=== PATIENT | male | born 1980 | race Two or more races ===

== ENCOUNTER 2019-03-17 04:25 | Inpatient (IN) | payer OTHER ==
[~2019-03-17] VITALS: Ht 175.3 cm; Wt 92.5 kg
--- NOTE | 2019-03-17 04:30 | NUR ---
PT. PRESENTS TO ER COMBATIVE, YELLING, SCREAMING, STATING HE HATES HIS MOTHER, [facility] STATES HE WAS FOUND NEAR A [facility], [place] [employer] WAS NOTIFIED, PT. HAS HX OF SCHIZOPHRENIC AND BIPOLAR, HAS BEEN NON-COMPLIANT WITH MEDICATIONS, PT./ PLACED IN BED 5, INSTRUCTED PT. TO VERBALIZED FEELINS, DE-ESCALTING TECHNIQUES IMPLIED, REDUCED STIMULI, PT. STILL REFUSING TO COOPERATIVE, HARD RESTRAINTS APPLIED PER DR. CARLSON, SAFETY PRECAUTIOS IN PLACE, IN VIEW OF STAFF, WILL MONITOR.
--- NOTE | 2019-03-17 04:35 | NUR ---
PT VERBALIZED NKA TO EMT EN ROUTE
[2019-03-17 05:33] LABS: CALCIUM 8.6 mg/dL (8.5-10.1); CHLORIDE SERUM 108 mmol/L (98-107); GFR1 > 60 mL/min; GLUCOSE SERUM 86 mg/dL (74-106); POTASSIUM SERUM 3.5 mmol/L (3.5-5.1); SODIUM SERUM 144 mmol/L (136-145)
[2019-03-17 05:41] LABS: BASOPHIL % 0.2 % (0-2); PLATELET COUNT 195 x10^3mcL (130-400); RED CELL DISTRIBUTION WIDTH 12.8 % (11.5-14.5)
--- NOTE | 2019-03-17 06:12 | NUR ---
PT. ATTEMPED TO GIVE URINE SAMPLE, STATES "I CANT GO." URINAL AT BEDSIDE
--- NOTE | 2019-03-17 06:30 | NUR ---
PT. YELLING, CALLING STAFF NAMES, REFUSING TO BE COOPERATIVE, REFUSING TO GIVE URINE SAMPLE, MADE AWARE,
--- NOTE | 2019-03-17 06:47 | NUR ---
I CALLED [employer] FOR ASSIT TO THIS CASE, PT IS VERY VEBALLY ABUSIVE SPEAKING OUT LOUD YELLING, BITING HIS RESTRAINTS TO TAMY WRISTS, PT IS SPITTING AT SEVERAL STAFF MEMBERS, PT IS IN ROOM 5 WITH SIDERAILS UP IN 4 POINT RESTRAINTS.
--- NOTE | 2019-03-17 06:51 | NUR ---
PT. SPITTING AT STAFF, YELLING, CUSSING, SAYING "FUCK KARL." "STUPID ASS BITCH , YOU IN THE PINK." SECURITY AT BEDSIDE,
--- NOTE | 2019-03-17 07:11 | NUR ---
REPORT GIVEN TO SINTIA
--- NOTE | 2019-03-17 07:13 | NUR ---
RECEIVED REPORT FROM KIN SAN FOR CONTINUED CARE OF PATIENT.
--- NOTE | 2019-03-17 07:56 | NUR ---
INTRODUCED MYSELF TO PATIENT. RELEASED RESTRAINTS TO ALLOW PATIENT TO USE URINAL. WILL CONTINUE TO MONITOR.
--- NOTE | 2019-03-17 08:03 | NUR ---
ORDERED PATIENT MEALS FOR TODAY. PATIENT IS BEING COOPERATIVE AT THE MOMENT, THEREFORE, I RELEASED LEG RESTRAINTS. WILL CONTINUE TO MONITOR.
--- NOTE | 2019-03-17 08:05 | NUR ---
REMOVED RESTRAINTS FROM PATIENT. PATIENT IS PRESENTING IN A CALM MANNER. PT STS HE HASN'T TAKEN HIS SEROQUEL IN OVER A WEEK AND HAS APOLOGIZED FOR HIS BEHAVIOR EARLIER. PT WAS PROVIDED BEVERAGES AND A SANDWICH UNTIL DIETARY CAN PROVIDE A BREAKFAST TRAY. WILL CONTINUE TO MONITOR.
[2019-03-17 08:24] LABS: AMPHETAMINE QUAL UR NONE DETECTED (See below)
--- NOTE | 2019-03-17 08:24 | NUR ---
[facility] has received packet via fax. Will begin looking for placement for this pt. Will contact with any updates.
--- NOTE | 2019-03-17 09:01 | NUR ---
BREAKFAST TRAY PROVIDED, PT HAS REMAINED COOPERATIVE. PT KEEPS APOLOGIZING FOR HIS BEHAVIOR STATING "I HAVE JUST BEEN GOING THROUGH A LOT OF SHIT". WILL CONTINUE TO MONITOR.
--- NOTE | 2019-03-17 09:14 | NUR ---
Contacted the following facilities regarding placement: [facility]: No beds at this time, packet faxed for waitlist. [facility]:No beds, possible D/Cs today, packet faxed for potential openings. [facility]: Pending D/C Planning will [facility] No openings at this time. Will continue to contact facilities. Will contact with any updates.
--- NOTE | 2019-03-17 10:35 | NUR ---
[facility] s/w Camille no beds. Packet faxed for wait list
--- NOTE | 2019-03-17 10:37 | NUR ---
PT GIVEN TOILETRIES FOR SELF HYGIENE. PT OOB WITH NO PROBLEM. PT WALKING AROUND ROOM "TO HELP WITH HIS LEG CIRCULATION" PT CALM AND COOPERATIVE AT THIS TIME. NO DISTRESS. PRIMARY RN SINTIA OVERSEEING PTS CARE.
--- NOTE | 2019-03-17 11:10 | NUR ---
PATIENT HAS BECOME AGITATED AGAIN. PT PACING ROOM, REQUESTED MEDICATION ORDER. DR BORDEN ORDERED, WILL WAIT FOR PHARMACY TO DELIVER. WILL CONTINUE TO MONITOR.
--- NOTE | 2019-03-17 11:35 | NUR ---
REQUESTED PHARMACY BRING MEDS FOR PATIENT STAT. PT IRRITATED AND PACING ROOM WHILE RAPPING. PT DENIES S/I OR H/I. WILL CONTINUE TO MONITOR.
--- NOTE | 2019-03-17 11:49 | NUR ---
PATIENT MEDICATED PER MD ORDERS
--- NOTE | 2019-03-17 12:08 | NUR ---
PATIENT BACK ON RESTRAINTS AFTER SHOWING AGRESSIVE BEHAVIOR TOWARDS STAFF AND OTHER PATIENTS. PATIENT SCREAMING AND COMBATIVE. WILL CONTINUE TO MONITOR.
--- NOTE | 2019-03-17 12:24 | NUR ---
PATIENT MEDICATED PER MD ORDERS, PT COMBATIVE BUT RESTRAINED. PT VERY AGITATED. MD AWARE.
--- NOTE | 2019-03-17 12:33 | NUR ---
I CALLED [employer] OFFICERS TO HELP WITH THIS CASE PT IS MANIC AT THIS TIME PER DR BORDEN IV MEDS KAETAMINE CAN BE GIVEN HOWEVER WE NEED AN IV.
--- NOTE | 2019-03-17 13:16 | NUR ---
PT SLEEPING AROUSABLE WHEN CALLING, IV SALINE LOCK TO L HAND ESTABLISHED PER DR BORDEN ORDERS FLUSHED WITH NO PROBLEM. PT REMAINS IN CLOSE VIEW OF NURSE STATION
--- NOTE | 2019-03-17 14:36 | NUR ---
PT ASLEEP, EASILY AROUSABLE, RESP E/U, IN DIRECT VIEW OF NURSING STATION, IN NO ACUTE DISTRESS.
--- NOTE | 2019-03-17 15:26 | NUR ---
PATIENT LYING IN A POSITION OF COMFORT, BREATHING E/U, NAD NOTED. WILL CONTINUE TO MONITOR.
--- NOTE | 2019-03-17 16:30 | NUR ---
PATIENT SLEEPING IN A POSITION OF COMFORT, VSS, BREATHING E/U. WILL CONTINUE TO MONITOR.
--- NOTE | 2019-03-17 17:30 | NUR ---
PATIENT SLEEPING ON GURNEY- BREATHING E/U, NO ACUTE SS OF DISTRESS NOTED. WILL CONTINUE TO MONITOR.
--- NOTE | 2019-03-17 18:27 | NUR ---
PATIENT'S BROTHER CALLED INQUIRING OF STATUS ON PT. I WOULD NOT RELEASE ANY INFORMATION. FAMILY UNDERSTANDING OF PRIVACY RIGHTS.
--- NOTE | 2019-03-17 19:10 | NUR ---
MOTHER CALLED ME REQUESTING INFO IN REGARDS TO THIS PT. MOTHER HAS BEEN LOOKING FOR THIS PT FOR 4-5 DAYS, SHE INFORMS ME THAT HE HAS BEEN OUTRAGED WITH HIS BEHAVIOR.I INFORMED HER THAT [facility] IS [facility]AF[facility] AND WE ARE LIMITED TO INFO, SHE CAN COME TO SEE HIM IF SHE LIKE.
--- NOTE | 2019-03-17 19:15 | NUR ---
PROVIDED REPORT TO LEN FOR CONTINUED CARE OF PATIENT.
--- NOTE | 2019-03-17 19:32 | NUR ---
UPON ENTERING ROOM TO MEDICATE PATIENT, IV WAS NOT PATENT. PLACED A NEW IV TO LEFT HAND, NO INFILTRATION NOTED AND NO PAIN AT THE SITE.
[2019-03-17] MEDS ORDERED: SEROQUEL25 MG PO (19:33)
--- NOTE | 2019-03-17 19:52 | NUR ---
REPORT GIVEN TO CELIA SANDERSON IN ICU, WHO WILL BE ASSUMING FURTHER CARE OF THIS PATIENT. VERBAL OK YANIV MOBLEY TO ADMIT PATIENT TO ICU AT THIS TIME.
--- NOTE | 2019-03-17 20:10 | NUR ---
RECEIVED PT FROM ER VIA [facility] ACCOMPANIED BY 2 EMT'S AND 1 RN. PT TRANSFERED TO ICU BED 5 WITH NO COMPLICATIONS.
--- NOTE | 2019-03-17 20:30 | NUR ---
PT IS AGITATED AT THIS TIME. PT IS SCREEMING AT STAFF, " LET GO OF ME. I HAVE TO PEE". PT ATTEMPTING TO GET OUT OF BED. PT INSTURCTED TO REMAIN IN BED. MADE AWARE HE HAS A READ AT THIS TIME AND CAN PEE. PT REFUSING TO COOPERATE. PT MEDICATED WITH ATIVAN 2 MG IVP PER EMAR. WILL CONT TO MONITOR
[2019-03-17 20:32] VITALS: BP 126/68
--- NOTE | 2019-03-17 20:45 | NUR ---
RECEIVED PT AWAKE/ALERT. ORIENTED TO SELF. PT STS HE IS UNSURE WHERE HE IS AT AND IT IS 2012. PT REORIENTED AT THIS TIME. SPEECH IS GARBLED. PUPILS WITH BRISK REACTION TO LIGHT, 3 MM BILAT. EENT FREE OF DISCHARGE. ORAL MUCOSA PINK AND MOIST. BREATHING IS E/U ON RA. LUNGS SOUND CLEAR BILAT. SYMMETRICAL CHEST EXPANSION NOTED. S1/S2 HEART SOUNDS AUSCULTATED. CHEST WALL EQUAL AND SYMMETRICAL. HR 123, BP 126/68, MAP 88. PALPABLE PULSES X4 EXTREMITIES. SKIN IS WARM AND DRY. NO EDEMA NOTED. CAP REFILL < 3 SECS. LH AND RAC IV IN PLACE, SALINE LOCKED. COLOR CONSISTENT WITH ETHNICITY. NO JOINT SWELLING/DEFORMITY NOTED. LIMITED FULL ROM X4 EXTREMITIES. RECEIVED PT ON VELCRO 4 PT RESTRAINT FOR PT AND STAFF SAFETY, SKIN/PULSE WNL. ABD IS SOFT, ROUND, NONTENDER TO PALPATION. BOWEL SOUNDS ACTIVE X4 QUADRANTS. NO BM NOTED. RECEIVED ORDER FOR READ CATH INSERTION UPON ADMISSION. 16 FR READ CATH INSERTED VIA STERILE TECHNIQUE. 100 ML OF SIMON COLORED URINE NOTED. NO SCROTAL EDEMA OR PENILE DISCHARGE NOTED. ECCHYMOSIS NOTED TO BLE. SKIN IS INTACT. PT REMAINS AGITATED, ATTEMPTING TO GET OUT OF BED. DENIES ANY SI/HI/HALLUCINATIONS AT THIS TIME. BED IN LOW POSITION. PT ON CLEAR VIEW OF THE NURSES STATION. WILL CONT TO MONITOR
--- NOTE | 2019-03-17 22:10 | NUR ---
PT'S MOTHER AND GIRLFRIEND AT BEDSIDE. UPDATED ON PT'S CURRENT STATUS. ALL QUESTIONS/CONCERNS ADDRESSED. PT'S BELONGINGS SENT HOME WITH THE PT'S MOTHER.
--- NOTE | 2019-03-17 22:25 | NUR ---
PT'S O2 SATURATION DROPPED TO 80%. PT PLACED ON 3 L VIA NC. PT'S O2 SATURATION AFTERWARD INCREASED TO 98%. WILL CONT TO MONITOR.
[2019-03-17 23:00] VITALS: BP 118/77
--- NOTE | 2019-03-17 23:32 | NUR ---
Follow up calls were made to contracted [facility] facilities regarding bed placement, currently no beds available at this time. [facility], spoke with Evan. [facility], spoke with Caden. [facility], spoke with Verna. [facility], spoke with Fadi. [facility], spoke with Isabella. [facility], spoke with Estefany. [facility], spoke with Vita.
--- NOTE | 2019-03-18 00:24 | NUR ---
PT IS RESTLESS, ATTEMPING TO GET OUT OF BED AND PULLING ON READ CATH. PT INSTRUCTED TO NOT PULL ON CATHETER. BLOODY COLORED URINE WITH BLOOD CLOTS NOTED ON TUBING. READ TUBING IRRIGATED AT THIS TIME. WILL CONT TO MONITOR
--- NOTE | 2019-03-18 02:24 | NUR ---
PT IS RESTLESS AT THIS TIME. PT CONTINUES TO PULL ON READ CATH. BLOODY COLORED URINE NOTED. READ IRRIGATED WITH STERILE WATER. INSTRUCTED TO NOT PULL ON CATH. PT STS, " LET ME GO. I'M GOING HOME. I'M SIGNING MYSELF OUT". PT ATTEMPTING TO GET OUT OF BED. PT MEDICATED WITH ATIVAN PER EMAR.
[2019-03-18 03:27] VITALS: BP 116/67
--- NOTE | 2019-03-18 06:17 | NUR ---
PT IS CALM AT THIS TIME. PT IN AGREEMENT TO COOPERATE IF RESTRAINTS ARE REMOVED TO BLE. BLE RESTRAINTS REMOVED AT THIS TIME. PT IN VIEW OF THE NURSES STATION. WILL CONT TO MONITOR.
--- NOTE | 2019-03-18 07:10 | NUR ---
REPORT GIVEN TO JOHANN SANDERSON. ALL QUESTIONS/CONCERNS ADDRESSED AT THIS TIME. ENDORSING ALL CARE
--- NOTE | 2019-03-18 07:40 | NUR ---
[facility] still actively working on finding placement for this pt. Will contact with any updates.
[2019-03-18 07:50] VITALS: BP 124/68
[2019-03-18 08:07] VITALS: Ht 175.3 cm; Wt 92.5 kg
--- NOTE | 2019-03-18 08:53 | NUR ---
SCREEN FOR LOW RASHAUN SCALE AT RISK CONTINUE PRESSURE ULCER PREVENTION INTERVENTIONS: -TURN AND REPOSITION PATIENT Q 2H OFFLOAD LEFT AND RIGHT HIPS -ASSESS AND MONITOR SKIN CONDITION DURING POSITION CHANGE -OFFLOAD BILATERAL HEELS BY PLACING PILLOWS UNDER CALVES AT ALL TIMES, UNLESS OTHERWISE CONTRAINDICATED -PRESSURE REDISTRIBUTION SURFACE THERAPY -KEEP SKIN CLEAN AND DRY AT ALL TIMES.
[2019-03-18] MEDS ORDERED: SEROQUEL XR200 M1 PO (09:14)
[2019-03-18] MEDS ORDERED: REMERON SOLTAB30 MG PO (09:15)
--- NOTE | 2019-03-18 09:40 | NUR ---
PT GIVEN PRN ATIVAN D/T ATTEMPTING TO REMOVE RIGHT WRIST RESTRAINT WITH TEETH. PT STILL AGITATED AT THIS TIME. WILL CONTINUE TO MONITOR PT.
--- NOTE | 2019-03-18 10:24 | NUR ---
PT CALM AT THIS TIME. WILL CONTINUE TO MONITOR.
--- NOTE | 2019-03-18 11:20 | NUR ---
2.5 MG PRN HALDOL GIVEN TO PT FOR AGITATION.
--- NOTE | 2019-03-18 11:42 | NUR ---
2.5 MG PRN HALDOL GIVEN TO PT FOR AGITATION. WILL CONTINUE TO MONITOR.
--- NOTE | 2019-03-18 11:53 | NUR ---
READ CATHETER REMOVED WITH BALLOON INTACT. PT TOLERATED WELL. WILL CONT TO MONITOR.
--- NOTE | 2019-03-18 11:57 | NUR ---
REORIENTED PT TO WHY HE'S HERE, HOW TO USE CALL LIGHT.
--- NOTE | 2019-03-18 12:04 | NUR ---
HALDOL ADMINISTRATION INEFFECTIVE FOR CALMING PT DOWN. 2MG ATIVAN IVP GIVEN. WILL CONTINUE TO MONITOR PT.
[2019-03-18 12:06] VITALS: BP 123/94
--- NOTE | 2019-03-18 12:15 | NUR ---
PT STILL AGITATED AT THIS TIME. RESIDENT PAGED AND CAME TO UNIT, UPDATES ON PERSISTENT AGITATION PROVIDED TO RESIDENT. RESIDENT SAID SHE WOULD INCREASE THE PRN DOSE OF HALDOL.
--- NOTE | 2019-03-18 12:27 | NUR ---
ECG LEADS OFF AT THIS TIME, PT REMOVED THEM THEN FELL ASLEEP. WILL REPLACE LEADS.
--- NOTE | 2019-03-18 12:49 | NUR ---
EDI ANALYST MARIAH FEEDING PT AT THIS TIME. PT COOPERATING.
--- NOTE | 2019-03-18 13:32 | NUR ---
RESTRAINTS REMOVED FROM PT. PT STATED HE WOULD BE COMPLIANT WITH NURSING DIRECTIVES.
--- NOTE | 2019-03-18 13:47 | NUR ---
PT SITTING IN CHAIR AT BEDSIDE. PT DISCONNECTED FROM IV AND VITAL SIGN MONITORING FROM SAFETY. BEING WATCHED CLOSELY.
--- NOTE | 2019-03-18 13:48 | NUR ---
PT USED BEDSIDE COMMODE, URINATED SEVERAL BLOOD CLOTS.
--- NOTE | 2019-03-18 14:01 | NUR ---
Called the facilities with no beds availability: [facility], s/w Lizbeth Alfaro, s/w Inés Chavez [facility], s/w brittani [facility], s/w [facility], s/w Eloina
--- NOTE | 2019-03-18 14:18 | NUR ---
PT STILL SITTING IN CHAIR AT BEDSIDE. 2MG ATIVAN IVP GIVEN AT 1354. PT CALM AT THIS TIME.
--- NOTE | 2019-03-18 14:23 | NUR ---
DOMINICK NOTED ON FEET. PT SAID HE HAS BLISTERS ON HIS FEET, REFUSED ALLOWING RN'S TO TAKE OFF BANDAGING TO SEE FEET.
--- NOTE | 2019-03-18 14:25 | NUR ---
R AC IV REMOVED, PT PARTIALLY REMOVED IT. L HAND IV PATENT, FLUSHES EASILY.
--- NOTE | 2019-03-18 14:31 | NUR ---
NATHANAEL BOJORQUEZ, WITH PTManuel
--- NOTE | 2019-03-18 15:20 | NUR ---
PT RESTING IN BED, CALM. ASSESSMENT NOT DONE AT THIS TIME TO ALLOW PATIENT TO REST.
--- NOTE | 2019-03-18 15:59 | NUR ---
PT STILL RESTING IN BED, CALM. BREATHING E/U. NO S/S DISTRESS NOTED.
--- NOTE | 2019-03-18 16:16 | NUR ---
PT AWAKE, ASKING FOR FOOD. GIVEN TUNA SANDWICH AND SPRITE.
--- NOTE | 2019-03-18 16:27 | NUR ---
PT GIVEN 2 MG ATIVAN FOR AGITATION. WILL CONTINUE TO MONITOR PT.
--- NOTE | 2019-03-18 16:52 | NUR ---
PT SAT ON BSC, HAD 1 BM MODERATE AMT FORMED STOOL & MORE BLOOD CLOTS IN URINE. REPORTS PAIN WITH URINATION. PT BACK IN BED AT THIS TIME.
--- NOTE | 2019-03-18 17:04 | NUR ---
PT ADMINISTERED 5MG IVP HALDOL FOR AGITATION. PT IN BED, RESTRAINTS OFF.
--- NOTE | 2019-03-18 17:45 | NUR ---
PT RESTING IN BED, EYES CLOSED. EKG LEADS ON AT THIS TIME. HR 85, RR 20. NO S/S DISTRESS NOTED.
--- NOTE | 2019-03-18 18:35 | NUR ---
PT ASSISTED BACK TO BED, RESTING WITH EYES CLOSED AT THIS TIME.
--- NOTE | 2019-03-18 18:35 | NUR ---
PT TO BSC. 100 ML RED URINE.
--- NOTE | 2019-03-18 19:10 | NUR ---
2MG ATIVAN GIVEN PRN FOR AGITATION.
[2019-03-18 19:30] VITALS: BP 117/78
--- NOTE | 2019-03-18 19:30 | NUR ---
PT AGITATED AND UNCOOPERATIVE WITH STAFF, REMOVING EKG LEADS AND PULSE OXIMETRY. EDUCATED PT ON MONITORING AND 5150 HOLD AND HOSPITAL STAY AND PENDING PSYCH DOCTOR ASSESSMENT. PT STATING "I NEED TO GET OUT OF HERE, YOU GUYS CANT KEEP ME HERE. I AM GOING TO LEAVE". DR. MONTELONGO MADE AWARE AT NURSING STATION.
--- NOTE | 2019-03-18 21:00 | NUR ---
PT AGITATED, YELLING AT NURSING STAFF AND STATING HE WILL LEAVE HOSPITAL. PT BEING UNCOOPERATIVE WITH NURSING STAFF. DR. MONTELONGO AT BEDSIDE. EDUCATED PT ON 5150 HOLD. CONTACTED [place] [employer] AND WAS INFORMED OF PT'S ATTEMPTING TO LEAVE ROOM, PER [place] [employer] TO CALL THEM IF PT LEAVES HOSPITAL/UNIT. SECURITY AND EMT CHARLIE AND EMT ODIN, RN MYNOR, RN SANTOS AT BEDSIDE TO ASSIST IN PLACING PT BACK ON 4 POINT VELCRO RESTRAINTS, SKIN /PULSE WNL. PT ATTACHED BACK ON BUTTON BUTTONHOLE MARKER AND CONTINOUS PULSE OXIMETRY.
[2019-03-18 23:15] VITALS: BP 111/79
--- NOTE | 2019-03-19 02:05 | NUR ---
IV TO LEFT HAND D/C'D AT THIS TIME, ANGIO CATH INTACT, GAUZE APPLIED. NEW IV INITATED TO LFA 20 G, PORT PATENT, NO S/S OF INFILTRATION, +BLOOD RETURN, SALINE LOCKED.
--- NOTE | 2019-03-19 02:12 | NUR ---
TOTAL BED BATH PROVIDED AT THIS TIME. PERIAREA CLEANED, CHUCKS SOILED WITH NOTED YELLOW URINE AND CHANGED. PT AGGRESSIVE AND GRABBED MY ARM STATING "I AM GOING TO KICK YOUR ASS, TRY ME HOMIE". PT REMAINS ON 4 POINT RESTRAINTS.
--- NOTE | 2019-03-19 02:46 | NUR ---
PT'S MOTHER CALLED. UPDATED HER ON PT'S PLAN OF CARE AND PT'S STATUS. MOTHERS PHONE NUMBER PROVIDED [phone].
[2019-03-19 03:13] VITALS: BP 110/69
--- NOTE | 2019-03-19 04:06 | NUR ---
Follow up calls were made through out shift, still no bed vacancies at the following contracted facilities. [facility] ANN[facility], spoke with Dougie. [facility], spoke with Evan. [facility], spoke with Tisha. [facility], spoke with Isabella. [facility], spoke with ivanna. [facility], spoke with Krystina. [facility], spoke with Krystina.
--- NOTE | 2019-03-19 04:11 | NUR ---
Follow up calls were made to contracted psych facilities, still no bed vacancies through out shift. [facility], spoke with Oj. [facility], spoke with Dougie. [facility], spoke with Tihsa. [facility], spoke with Isabella. [place], spoke with Krystina. [facility], spoke with Ravinder. Patients 5150 will today 03/19 @ 1700, patient will need a re evaluation.
--- NOTE | 2019-03-19 05:24 | NUR ---
PT SLEEPING BUT AROUSABLE TO STIMULI. PT HAS NOTED SNORING AT THIS TIME, DESATURATED TO 91%, NASAL CANNULA APPLIED 2LPM, PT NOW SATURATING @ 97%.
--- NOTE | 2019-03-19 06:26 | NUR ---
DR. ORANTES AT [facility]. UPDATES PROVIDED, NO NEW ORDERS.
--- NOTE | 2019-03-19 07:15 | NUR ---
GAVE REPORT TO KIN MARK. UPDATES GIVEN, QUESTIONS ANSWERED. ENDORSED CARE.
[2019-03-19 07:45] VITALS: BP 117/77
--- NOTE | 2019-03-19 07:45 | NUR ---
PT RESTING IN BED AGITATED AT THIS TIME. PT A/A/O/X2, LETHARGIC BUT AROUSABLE. PT RESPONDS TO VERBAL COMMANDS AND ABLE TO MAKE NEEDS KNOWN. PUPILS 3MM AND BRISK BILAT. NO EENT DRAINAGE NOTED AT THIS TIME. RESP E/U. LUNGS DIM IN BASES. ON RA, PT DENIES SOB. NO RESP DISTRESS NOTED. PALP PULSES TO BUE/BLE, NO EDEMA NOTED. SKIN WARM TO TOUCH. PT ON 4 POINT RESTRAINTS, GOOD CIRCULATION NOTED TO ALL EXTREMITIES. GENERALIZED WEAKNESS. REPOSITION Q2H PER PROTOCOL. PT NONCOMPLIANT WITH NURSE CARE AND REPOSITIONING. PT TOLERATING DIET. PT DENIES N/V,. ABDOMEN ROUND AND NONTENDER. ACTIVE BS. PT USES URINAL. PT AGITATED AND CURSING WITH NURSING STAFF. BED IN LOWEST POSITION. WILL CONTINUE TO MONITOR
--- NOTE | 2019-03-19 09:55 | NUR ---
AM MEDICATION GIVEN VIA IV, PT TOLERATED WELL. RESP E/U. NO S/S OF PAIN/DISCOMFORT. WILL CONT TO MONITOR
--- NOTE | 2019-03-19 10:41 | NUR ---
PT AGITATED AT THIS TIME, YELLING "I NEED TO GET THE FUCK OUT OF HERE. RELEASE ME NOW". PT PULLING ON RESTRAINTS. RESTRAINT SECURED IN PLACE, GOOD CIRCULATION NOTED. PT EDUCATED AT THIS TIME. MEDICATED ADMINISTERED PER MD ORDER. VSS. WILL CONT TO MONITOR.
[2019-03-19 11:30] VITALS: BP 128/71
--- NOTE | 2019-03-19 11:45 | NUR ---
PT AGITATED AND YELLING "GET ME THE FUCK OUT OF HERE. HOW MUCH GASOLINE DID YOU GUYS PUT IN MY BODY". PT PULLING OF MONITOR LEADS AND ATTEMPTING TO REMOVE RESTRAINTS. MEDICATED PER EMAR. VSS. WILL CONT TO MONITOR
--- NOTE | 2019-03-19 12:26 | NUR ---
DR LANDIN PRESENT AT BEDSIDE DISCUSSING POC WITH PT. PER DR LANDIN PT MANIC AND 5150 TO REMAIN. WILL CONT TO MONITOR
--- NOTE | 2019-03-19 13:04 | NUR ---
Called the following facilities with no bed availability: [facility], s/w Har[facility], s/w [facility], s/w Ammy [facility], s/w Juvecnio [facility], s/w intake
--- NOTE | 2019-03-19 13:04 | NUR ---
PT AGITATED AT THIS TIME, ATTEMPTING TO REMOVE RESTRAINTS AND EQUIPMENT. MEDICATED PER EMAR. VSS. WILLCONT TO TO MONITOR
--- NOTE | 2019-03-19 13:36 | NUR ---
PT URINATED AT THIS TIME, 250 IN URINAL DARK SIMON. PT CLEANED AT THIS TIME. WILL CONT TO MONITOR
--- NOTE | 2019-03-19 15:15 | NUR ---
PT AGITATED AND CURSING AT NURSING STAFF. PT REMOVED WATCH CRYSTAL CUTTER AND CONTINOUS PULSES OX. WHEN ASKED WHY PT STATES "I DONT WANT ANY OF THIS ON, I DONT NEED THIS SHIT. ILL KEEP REMOVING IT". PT EDUCATED ON PURPOSE OF EQUIPMENT AND TREATMENT. PT CONTINUED TO REFUSE. WILL NOTIFY MD AND MAKE AWARE. WILLCONT TO MONITOR
[2019-03-19 15:57] VITALS: BP 118/80
--- NOTE | 2019-03-19 17:00 | NUR ---
PT UNDER AGREEMENT THAT RLE TO BE RELEASED OFF OF RESTRAINT AT THIS TIME. PT AGREES NOT TO KICK OR ATTMEPT TO REMOVE RESTRAINTS. RLE REMOVED AT THIS TIME, WILL CONT TO MONITOPR
--- NOTE | 2019-03-19 18:41 | NUR ---
PT MOTHER PRESENT AND UPDATED ON PTS CURRENT CONDITION. ALL QUESTIONS AND CONCERNS ADDRESSED. MOTHER AWAITING FOR PT GIRLFRIEND TO ARRIVE AT THIS TIME
--- NOTE | 2019-03-19 19:10 | NUR ---
PT ENDORSED TO SARA SANDERSON. ALL QUESTIONS AND CONCERNS ADDRESSED
--- NOTE | 2019-03-19 19:28 | NUR ---
RECIEVED REPORT FROM RN ISAI. NURSING UPDATES. POC DISCUSSED. SEE SHIFT ASSESSMENT FOR ASSESSMENT. SPOKE W/ MOTHER MAYA FILLED INFORMANTION OF PREVIOUS HISTORY. GF ARRIVED. NOTIFIED PER MOTHER THAT GF MAY CAUSE PT AGGRAVATION. NOTIFIED GF (SANDI) THAT IF PT BECOME AGGRAVATED SHE SHOULD LEAVE ROOM. GF IN AGREEMENT AND LET INTO ROOM. PT NON-AGGRESSIVE AND SLIGHTLY COMPLIANT. MOOD SLIGHTLY IMPROVED. WILL CONT TO MONITOR.
[2019-03-19 19:45] VITALS: BP 127/80
--- NOTE | 2019-03-19 20:18 | NUR ---
MAYA MOTHER NOTIFIED PER TELEPHONE OF UPDATES PER VERBAL PASSWORD. NOTIFIED TO SANDI TO CALL MAYA WHEN SHE GETS A CHANGE.
--- NOTE | 2019-03-19 21:32 | NUR ---
PT COOPERATIVE @ THIS TIME FOLLOWING SIMPLE COMMANDS. GF @ BEDSIDE. NOTED IMPROVEMENT IN BEHAVIOR WITH MOOD. WILL CONT TO MONITOR.
--- NOTE | 2019-03-19 23:07 | NUR ---
PT ATTEMPTED TO HAVE BOWEL MOVEMENT IN BEDPAN AND USE BEDSIDE URINAL W/ FAILURE. SAID HE "HAS MORE DIGNITY THAN TO POOP SITTING UP." INSTRUCTED PT ABOUT RESTRAINTS AND PURPOSE TO BEDSIDE URINAL AND BEDPAN. PT REFUSED TO HAVE BM BUT PRODUCED 400CC DARK YELLOW URINE.
--- NOTE | 2019-03-19 23:14 | NUR ---
PT REFUSED VITALS @ THIS TIME. INSTRUCTED ON PURPOSE AND NOTIFIED PT OF MAKING A WILLING VERBAL CONTRACT FOR PT TO DO 0400 VITALS.
--- NOTE | 2019-03-20 00:31 | NUR ---
PT L FOOT RESTRAINT SWITCHED TO R FOOT PER PT AGITATION AND NOTED HELP HIM SLEEP BETTER. RESTRAINT SWITCHED ON L FOOT TO OFF AND R FOOT TO ON. PT TOLERATED WELL. WILL CONT TO MONITOR.
--- NOTE | 2019-03-20 02:07 | NUR ---
PT W/ AGITATION. ATTEMPTED CALMING MEASURES W/ NO AVAIL. PRN (*SEE MAR*) ATIVAN ADM. PT TOLERATED WELL. PT NOW RESTING CALMLY IN BED. WILL CONT TO MONITOR.
--- NOTE | 2019-03-20 02:52 | NUR ---
PT W/ 450ML DARK SIMON URINE. NO S/S OF DISTRESS. PT TOLERATED WELL. WILL CONT TO MONITOR.
[2019-03-20 03:14] VITALS: BP 122/77
--- NOTE | 2019-03-20 03:21 | NUR ---
PT RLE RESTRAINT SWITCHED OFF AND LLE RESTRAINT SWITCHED ON PER PT STATING IT WAS BOTHING HIM AND WOULD HELP HIM SLEEP. PT TOLERATED WELL WILL CONT TO MONITOR.
--- NOTE | 2019-03-20 04:43 | NUR ---
PT CLEANED AND LINENS CHANGED. PT TOLERATED WELL. NO ACUTE CHANGES. PT STATED "I'M GOING TO TAKE A NAP NOW". WILL ENDORSE.
--- NOTE | 2019-03-20 06:06 | NUR ---
PT NOTED WANTING A PODIATRIC DOCTOR TO LOOK @ HIS FEET. STATED HE'S BEEN GETTING BLISTERS WHICH ARE PAINFUL AND DISRUPT HIS WORK. PT NOTED W/ DIRTY FEET AND POSSIBLE BLISTER BETWEEN 2ND AND 3RD DIGIT ON RIGHT FOOT. NOTED PAINFUL TO THE TOUCH. WILL ENDORSE.
--- NOTE | 2019-03-20 06:43 | NUR ---
PT RESTRAINTS FOR L HAND AND R HAND REMOVED. PT IN AGREEMENT W/ COMPLIANCE FOR REMOVAL OF RESTRAINTS AND ATTEMPTING BM IN BED. WILL ENDORSE.
--- NOTE | 2019-03-20 07:00 | NUR ---
PATIENT CALM AND COOPERATIVE WITH CARE. ALL RESTRAINTS REMOVED AT THIS TIME. PATIENT VERBALIZED AN UNDERSTANDING OF MEDICATION COMPLIANCE AND AGREES WITH POC. PATIENT SERVED BREAKFAST AND SITTING IN CHAIR BEDSIDE. PERSONAL HYGIENE PRODUCTS SUPPLIED.
--- NOTE | 2019-03-20 07:10 | NUR ---
PATIENT PROVIDED BEDSIDE URINAL AND VOIDED 300 ML OF BLOOD TINGED URINE.
--- NOTE | 2019-03-20 07:14 | NUR ---
PT C/O PAIN LEFT CLAVICLE 03/16. PAIN FROM PALPATION LISTED AT 03/16, BUT CLINICALLY NO VISUAL SIGNS OF DMG. WILL ENDORSE.
--- NOTE | 2019-03-20 07:35 | NUR ---
HAS BM IN THE BEDSIDE COMMODE, LARGE AMOUNT, SOFT, AND BROWN COLOR. PERICARE DONE BY THE PATIENT HIMSELF, TOLERATED WELL.
[2019-03-20 08:00] VITALS: BP 102/64
--- NOTE | 2019-03-20 08:00 | NUR ---
INITIAL SHIFT ASSESSMENT DONE (SEE ASSESSMENT PART). AAOX2. NO C/O PAIN OR DYSPNEA. O2 SAT 100% ON RA. SR ON MONITOR. SBP IN 100'S. NO ECTOPY NOTED. HOB ELEVATED. GIVEN BREAKFAST TRAY. UPDATED OF PLAN OF CARE. WILL CONTINUE TO MONITOR.
--- NOTE | 2019-03-20 08:20 | NUR ---
PATIENT C/O HEADACHE. ADMINISTER 650 MG TYLENOL PO FOR RILEY.
--- NOTE | 2019-03-20 08:27 | NUR ---
PATIENT ADMINISTERED SEROQUEL M.D. ORDERED. PATIENT COMPLIANT AND IN AGREEMENT OF TAKING PSYCH MEDICATION PRESCRIBED. PATIENT CONTINUES TO BE CALM AND COOPERATIVE WITH CARE.
--- NOTE | 2019-03-20 08:30 | NUR ---
KRYSTA PAVER LAYER AT BEDSIDE TO ASSESS PATIENT. POC DISCUSSED. PATIENT CONTINUES TO BE CALM AND COOPERATIVE WITH CARE.
--- NOTE | 2019-03-20 09:33 | NUR ---
REPORT GIVEN TO 2ND FLOOR MED/SCRAP CRANE OPERATOR, RN DAVID.
--- NOTE | 2019-03-20 09:40 | NUR ---
TRANSFER TO 2ND FLOOR MED/SURG UNIT BY WHEELCHAIR. ACCOMPANIED BY STUDENT NURSE AND ME.
--- NOTE | 2019-03-20 09:45 | NUR ---
RECIEVED PT VIA WC FROM [facility]. PT IS A TRANSFER FROM ICU. CURRENT 5150 HOLD. PT IS A/O X3 WITH NO C/O PAIN OR DISTRESS AT THIS TIME. VS WNL. SITTER AT BEDSIDE. SAFETY PRECAUTIONS IN PLACE, CALL LIGHT WITHIN REACH, WILL MONITOR.
[2019-03-20 09:58] VITALS: BP 107/62
--- NOTE | 2019-03-20 13:00 | NUR ---
PT STABLE RESTING IN BED WITH SITTER AT BEDSIDE. SAFETY PRECAUTIONS IN PLACE, CALL LIGHT WITHIN REACH, WILL MONITOR.
[2019-03-20 17:31] VITALS: BP 113/88
--- NOTE | 2019-03-20 18:47 | NUR ---
PT COMFORTABLY ASLEEP IN BED AT THIS TIME. NO S/S OF PAIN OR DISTRESS. SITTER AT BEDSIDE. SAFETY PRECAUTIONS IN PLACE, CALL LIGHT WITHIN REACH, WILL ENDORSE TO NIGHT NURSE.
--- NOTE | 2019-03-20 19:59 | NUR ---
RECEIVED IN BED AWAKE AND ALERT WITH NO C/O PAIN AND DISCOMFORT AT THIS TIME. BREATHING EASYA ND NONLABOR SATTING AT 99% RA. MED/SURG PATIENT. ABDOMEN ROUND AND NONTENDER WITH ACTIVE BS. IV TO LFA HEPLOCKED. SITTER AT BEDSIDE. WILL CONTINUE TO MONITOR.
[2019-03-20 20:00] VITALS: BP 122/81
--- NOTE | 2019-03-21 00:08 | NUR ---
STILL AWAKE NO SIGN OF DISTRESS AND NO C/O PAIN NOTED. SITTER AT BEDSIDE.
--- NOTE | 2019-03-21 03:49 | NUR ---
CONTINUING TO MONITOR STATUS FOR PATIENT. AWAITING UPDATE OF 5151
--- NOTE | 2019-03-21 04:10 | NUR ---
IV TO LFA ACCIDENTALLY PULLED BY PATIENT, REINSERTED NEW IV TO LEFT WRIST.
[2019-03-21 04:25] LABS: UA SPECIFIC GRAVITY 1.025 (1.005-1.035); microscopic required? YES; urine erythrocyte 3+ (NEGATIVE)
--- NOTE | 2019-03-21 04:32 | NUR ---
AGITATED AWAKE THE ENTIRE SHIFT, ATIVAN 2MG IVP GIVEN. WILL CONTINUE TO MONITOR.
--- NOTE | 2019-03-21 05:08 | NUR ---
AWAKE MOST OF THE TIME NO SIGN OF DISTRESS NOTED. ALL NEEDS ATTENDED.
[2019-03-21 05:19] VITALS: BP 114/78
--- NOTE | 2019-03-21 07:35 | NUR ---
RECEIVED PT FROM GENERAL INTERNAL MEDICINE DOCTOR NURSE. ASSESSED AND DOCUMENTED. DENIES PAIN THIS TIME. PT SITTING UP IN THE CHAIR. VERY TALKATIVE AND AGRESSIVE BEHAVIOR BUT NOT AGITATED THIS TIME. SITTER AT BEDSIDE. SAFTEY PRECAUTIONS ARE IN PLACE. WILL MONITOR.
[2019-03-21 09:00] VITALS: BP 120/71
--- NOTE | 2019-03-21 11:00 | NUR ---
PT WALKING IN THE ROOM. STABLE. CALM THIS TIME.
--- NOTE | 2019-03-21 14:00 | NUR ---
PT RESTING IN THE BED. STABLE. CALM THIS TIME. SITTER AT BEDSIDE.
--- NOTE | 2019-03-21 16:00 | NUR ---
PT WALKING IN THE ROOM. STABLE. DENIES ANY PAIN.
[2019-03-21 17:03] VITALS: BP 138/98
--- NOTE | 2019-03-21 19:00 | NUR ---
PT SITTING UP IN THE CHAIR. STABLE. SITTER AT BEDSIDE. GAVE REPORT TO CHIEF METER READER NURSE.
--- NOTE | 2019-03-21 19:15 | NUR ---
RECEIVED PATIENT IN BED AWAKE, ALERT WITH NO INDICATION OF ACUTE DISTREESS. BREATHING EASY AND NONLABOR SATTING AT 99% RA.IV HEPLOCK TO LEFT WRIST INTACT AND FLUSHED WITH NS. SITTER AT BEDSIDE. CALM THIS TIME ,COOPERATING WITH CARE. WILL CONTINUE TO MONITOR.
--- NOTE | 2019-03-21 22:30 | NUR ---
PATIENT WALKING AROUND THE ROOM, CALM WITH NO SIGN OF DISTRESS. SITTER AT BEDSIDE.
--- NOTE | 2019-03-22 02:17 | NUR ---
STILL AWAKE WITH NO INDICATION OF DISTRESS, PHOTO OF RT FOOT DISCOLORATION TAKEN.
--- NOTE | 2019-03-22 02:50 | NUR ---
STILL AWAKE, AGITATED ATIVAN 2MG IVP GIVEN PRESCRIBED. WILL CONTINUE TO MONITOR.
--- NOTE | 2019-03-22 04:57 | NUR ---
STILL NO VACANCY FOUND WILL ENDORSED TO AM SHIFT TO CONTINUE TO LOOK FOR PLACEMENT.
--- NOTE | 2019-03-22 05:03 | NUR ---
AWAKE MOST OF THE TIME, CHECKED AT INTERVALS FOR NEEDS AND SAFETY.
[2019-03-22 05:53] VITALS: BP 107/73
[2019-03-22 06:32] LABS: BASOPHIL % 0.6 % (0-2); PLATELET COUNT 307 x10^3mcL (130-400); RED CELL DISTRIBUTION WIDTH 13.2 % (11.5-14.5)
[2019-03-22 06:54] LABS: CALCIUM 9.2 mg/dL (8.5-10.1); CARBON DIOXIDE 30.1 mmol/L (21-32); CHLORIDE SERUM 103 mmol/L (98-107); GFR1 > 60 mL/min; GLUCOSE SERUM 106 mg/dL (74-106); POTASSIUM SERUM 4.6 mmol/L (3.5-5.1); SODIUM SERUM 141 mmol/L (136-145)
--- NOTE | 2019-03-22 07:30 | NUR ---
RECEIVED PATIENT AWAKE/ALERT IN BED, CALM BUT RESTLESS. PER REPORT PATIENT HAS NOT SLEEP AT NIGHT. C/O LT SHOULDER PAIN BUT ABLE TO MOVES AND LT ARM OLD IV SITE FEEL SWELLING AND HARD NOTED. POC EXPLAINED TO PATIENT, ALL QUESTIONS ADDRESSED AND PATIENT WANT TO GO HOME, "SAY I HAVE WORK TOMOROW." INFORM PATIENT WILL ADDRESS THE QUESTION WHEN DOCTOR ROUND. NEEDS MET. SITTER AT BEDSIDE CONT TO MONITOR PATIENT.
--- NOTE | 2019-03-22 08:48 | NUR ---
PATIENT SAT UP IN CHAIR NO COMPLAINS. ATE ALL HIS BREAKFAST, SEROQUEL 200MG PO ADMINISTERED, PATIENT TOOK HIS PILL W/O PROBLEM. NO DSITRESS NOTED. NEEDS MET. SITTER REMAIN AT BEDSIDE.
[2019-03-22 09:28] VITALS: BP 118/86
--- NOTE | 2019-03-22 10:33 | NUR ---
PATIENT GOT OUT OFF BED APPEAR AGITATED AND WANT TO SIGN HIMSELF OUT, RN EXPLAINED TO PATIENT THAT HE IS ON "[address] HERNANDEZ AND CAN'T SIGN HIMSELF OUT. PATIENT CUSS AND GIT IN BED COVER HIMSELF WITH BLANKET, ATIVAN 2MG IVP ADMINISTERED TO HELP PATIENT RELAX. SITTER REMAIN AT BEDSIDE.
--- NOTE | 2019-03-22 10:58 | NUR ---
S/W [facility] ([facility]) for patient. She will fax new [phone] for further placement
--- NOTE | 2019-03-22 12:11 | NUR ---
S/W Lizbeth from [facility]. Patient has been approved to transfer at [facility]. Will call with admitting information onced bed is available
--- NOTE | 2019-03-22 12:27 | NUR ---
PATIENT RESTING IN BED AWAKEN AND CALM, SS WORKER MAURICE AT BEDSIDE TALKING TO PATIENT UPDATE POC. ABLE TO ADDRESSED PATIENT CONCERN TOWARD WORK EXCUSE. SITTER REMAIN AT BEDSIDE CONT TO MONITOR.
--- NOTE | 2019-03-22 12:29 | NUR ---
Patient accepted at [facility] [address] [place] [address] Accepting MD: Dr. Merrill Phone # for report [phone] [place] [phone] Please call report in 30 minutes
--- NOTE | 2019-03-22 13:00 | NUR ---
PATIENT WANT TO SHOWER PER PYTHON ENGINEER KRYSTA NO SHOWER BUT BED BATH OKAY, INTELLECTUAL PROPERTY COUNSEL ASSISTING PATIENT WITH BED BATH.
--- NOTE | 2019-03-22 13:51 | NUR ---
SS WORKER MAURICE CALL INFORM RN PATIENT IS ACCEPTING TO [facility]. CALL FOR REPORT #[phone]. FARM LABOR CONTRACTOR KRYSTA WAS INFORM PATIENT GOT ACCEPTING TO [facility].
--- NOTE | 2019-03-22 14:04 | NUR ---
CALL TO [facility] AT [phone] GAVE REPORT TO LORNA SANDERSON. WILL CALL BACK TO UPDATE ETA.
[2019-03-22 14:49] VITALS: BP 118/86
--- NOTE | 2019-03-22 15:39 | NUR ---
PATIENT ON THE PHONE WITH MOTHER, ASKING MOTHER TO BRING CLOTHES. DISCHARGE INSTRUCTION EXPLAINED TO PATIENT. PATIENT VERBALIZE UNDERSTAND TRANSFER TO [facility] INPT PSYCH. WILL UPDATE TIME FOR FOREST PATHOLOGY PROFESSOR FROM [facility] OR [facility].
[2019-03-22 16:23] VITALS: BP 111/82
--- NOTE | 2019-03-22 16:44 | NUR ---
[facility] IS HERE FOR PATIENT, IV TO LW REMOVED BY HARSHAL COX, CATHETER INTACT. NO S/S OF SWELLING OR INFECTION NOTED. GAUZES APPLIED NO BLEDDING NOTED. WAITING FOR PATIENT'S MOTHER TO BRING CLOTHES FOR PATIENT. CALL [facility] TO UPDATE ETA 5-6PM AND WILL BE ARRIVE IN 1-2HRS.
--- NOTE | 2019-03-22 17:18 | NUR ---
PATIENT ON [facility]ERNEY AND TRANSFER TO INPT PSYCH FACILITY WITH MOTHER ACCOMPANIED. ALL PAPER WORKS WITH TRANSPORT.
== END 2019-03-22 17:20 | DRG 751 ==
LOC: ED 04:25 → DU 19:34 → IC 19:34 → MU 03-20 09:43
PROVIDERS: Emergency Medicine; ADMIT Internal Medicine
DX: F23 Brief psychotic disorder (principal); F25.0 Schizoaffective disorder, bipolar type; F12.10 Cannabis abuse, uncomplicated; Z91.14 Patient's other noncompliance with medication regimen; Z68.29 Body mass index [BMI] 29.0-29.9, adult
CPT/HCPCS: C9113; G0378; G0480; J0515; J1630; J2060; J2250; J3486; J3490; J7030